=== PATIENT | female | born 1950 | race African-American/Black ===

== ENCOUNTER 2016-06-05 14:58 | Emergency (ER) | payer MEDICARE, OTHER ==
[~2016-06-05 14:58] MED LIST: BLACK COHOSH PO; CAT2 PO; CENTRUM TAB1 TAB PO; HCTZ25B PO; HYGROTON 25 MG25 MG PO; MERCAPTOPUR50 MG PO; MIRALAXPKT PO; MULTIVITAMI1 PO; OXYCOD PO; PCET PO; PHILLIPS COLON HEALT PO; REMICADE IV; T PO; VITAMIN D1000 UNI1; VITAMIN D1000 UNI1 PO; ZESTRIL20 MG PO; [UNRECOGNIZED DRUG - OTHER] PO
[2016-11-15] MEDS ORDERED: ACET500CAP PO (12:46)
== END 2016-06-05 15:15 | disposition home or self-care (01) ==
LOC: ER 14:58
DX: J06.9 Acute upper respiratory infection, unspecified (principal); I10 Essential (primary) hypertension; F17.200 Nicotine dependence, unspecified, uncomplicated; Z88.5 Allergy status to narcotic agent; Z79.899 Other long term (current) drug therapy
CPT/HCPCS: 71020; 93005; 99283